=== PATIENT | male | born 1945 | race Caucasian/White ===

== ENCOUNTER → 2020-02-06 | Outpatient (CLI) | payer OTHER ==
[~2020-02-06] MED LIST: GADOTERATE 7.5 MMOL/15 ML SYR ONE
== END | disposition home or self-care (01) ==
LOC: RAD 09:51 → EDSTATUS 10:00
PROVIDERS: ATTEND Physician Assistant Surgical
DX: M51.34 Other intervertebral disc degeneration, thoracic region (principal); M43.8X4 Other specified deforming dorsopathies, thoracic region; M51.44 Schmorl's nodes, thoracic region; M25.78 Osteophyte, vertebrae; M48.03 Spinal stenosis, cervicothoracic region
CPT/HCPCS: 72157; A9575

== ENCOUNTER 2020-03-02 12:16 | Day surgery (SDC) | payer OTHER ==
[~2020-03-02] VITALS: Ht 167.6 cm; Wt 77.1 kg
[2020-03-02 13:20] VITALS: BP 143/69
[2020-03-02] MEDS ORDERED: SODIUM CHLORIDE 0.9% 1,000 ML IV SCH (13:24)
[2020-03-02] MEDS ORDERED: CHLORHEXIDINE 15 ML UDC ONE (13:30)
[2020-03-02] MEDS ORDERED: CHLORHEXIDINE 15 ML UDC MM ONE (13:30)
== END 2020-03-02 19:00 | disposition home or self-care (01) ==
LOC: OUT 12:16 → EDSTATUS 14:00 → OUT 19:00
PROVIDERS: ATTEND Neurological Surgery
DX: R27.0 Ataxia, unspecified (principal); M50.322 Other cervical disc degeneration at C5-C6 level; I10 Essential (primary) hypertension; Z88.8 Allergy status to other drugs, medicaments and biological substances; Z91.030 Bee allergy status; Z91.040 Latex allergy status; Z86.73 Personal history of transient ischemic attack (TIA), and cerebral infarction without residual deficits; Z98.1 Arthrodesis status
CPT/HCPCS: 62329; 72050